=== PATIENT | male | born 1960 | race Two or more races ===

== ENCOUNTER 2023-11-10 10:09 | Outpatient (CLI) | payer OTHER | END 2023-11-10 10:12 | disposition home or self-care (01) | LOC: SONOGRAMA 10:09 | PROVIDERS: ATTEND Pathology Anatomic Pathology & Clinical Pathology | DX: D34 Benign neoplasm of thyroid gland (principal); E06.3 Autoimmune thyroiditis; E04.2 Nontoxic multinodular goiter ==